=== PATIENT | female | born 1980 | race Caucasian/White ===

== ENCOUNTER 2021-08-05 01:57 | Emergency (ER) | payer MEDICAID ==
[2021-08-05] MEDS ORDERED: Codeine/guaiFENesin 100mg-10 MG/5 ML Soln 118 ML Bottle PO ONE (01:58)
[2021-08-05] MEDS ORDERED: Azithromycin 250 MG Tab PO ONE (01:58)
[2021-08-05] MEDS ORDERED: Albuterol/Ipratropium 3.0-0.5 MG/3 ML Neb Soln NEB ONE (02:42)
--- NOTE | 2021-08-05 03:23 | EDM.PDOC ---
ED HPI GENERAL MEDICAL PROBLEM - General Chief Complaint: Respiratory Problem Stated Complaint: upper resp issues Time Seen by Provider: 08/05/21 03:22 Source of Information: Reports: Patient History Limitations: Reports: No Limitations - History of Present Illness INITIAL COMMENTS - FREE TEXT/NARRATIVE: Coughing up gobs,x 3days. Has had COVID. No fever. Non smoker - Related Data Allergies Allergy/AdvReac Type Severity Reaction Status Date / Time No Known Allergies Allergy Verified 08/05/21 03:08 Home Meds: Home Meds Benzonatate [Tessalon Perles] 100 mg PO TID #15 cap 08/05/21 [Rx] Methylphenidate [Concerta] 18 mg PO DAILY 08/05/21 [History] Methylphenidate [Concerta] 54 mg PO DAILY 08/05/21 [History] Past Medical History Cardiovascular History: Reports: Hypertension Psychiatric History: Reports: Anxiety, Depression Endocrine/Metabolic History: Reports: Diabetes, Type II - Past Surgical History HEENT Surgical History: Reports: Tonsillectomy ED ROS GENERAL - Review of Systems Review Of Systems: Comprehensive ROS is negative, except as noted in HPI. ED EXAM, GENERAL - Physical Exam Exam: See Below Free Text/Narrative:: Actively coughing Exam Limited By: No Limitations General Appearance: Alert, WD/WN Nose: Nasal Drainage Throat/Mouth: Normal Inspection Head: Atraumatic Neck: Normal Inspection Respiratory/Chest: No Respiratory Distress, Rhonchi Cardiovascular: Normal Peripheral Pulses, Regular Rate, Rhythm Course - Vital Signs Last Recorded V/S: Last Vital Signs Temp 99.3 F 08/05/21 03:30 Pulse 104 H 08/05/21 03:30 Resp 18 08/05/21 03:30 BP 147/96 H 08/05/21 03:30 Pulse Ox 96 08/05/21 03:30 - Orders/Labs/Meds Labs: Laboratory Tests 08/05/21 Range/Units 02:20 SARS-CoV-2 RNA (MARQUITA) Negative (NEGATIVE) Meds: Medications Discontinued Medications Generic Name Dose Route Start Last Admin Trade Name Freq PRN Reason Stop Dose Admin Albuterol/Ipratropium 3 ml 08/05/21 02:42 08/05/21 02:47 Albuterol/Ipratropium 3.0-0.5 Mg/3 Ml Neb Soln NEB 08/05/21 02:43 3 ml ONETIME ONE Administration Azithromycin 1,500 mg 08/05/21 01:58 Azithromycin 250 Mg Tab PO 08/05/21 01:59 .STK-MED ONE Guaifenesin/Codeine Phosphate 60 ml 08/05/21 01:58 Codeine/Guaifenesin 100mg-10 Mg/5 Ml Soln 118 Ml Bottle PO 08/05/21 01:59 .STK-MED ONE Departure - Departure Time of Disposition: 14:51 Disposition: Home, Self-Care 01 Clinical Impression: Acute bronchitis - Discharge Information Prescriptions: Benzonatate [Susanasalon Jack] 100 mg PO TID #15 cap Instructions: Azithromycin tablets, Codeine; Guaifenesin oral solution or syrup, Acute Bronchitis, Adult Forms: ED Department Discharge Care Plan Goals: The result of your Covid test today was negative. [employer] prescription for [facility] at [facility] in [place]. Follow up with your primary care physician as needed. - Problem List & Annotations (1) Acute bronchitis SNOMED Code(s): 70920355 Code(s): J20.9 - ACUTE BRONCHITIS, UNSPECIFIED Status: Acute Qualifiers: Bronchitis organism: unspecified organism Qualified Code(s): J20.9 - Acute bronchitis, unspecified - Problem List Review Problem List Initiated/Reviewed/Updated: Yes - Assessment/Plan Plan: COVID -neg. Sent Nelsy AC home with.,Trang Santiago at the pharmacy.
--- NOTE | 2021-08-06 11:43 | CR ---
CHEST TWO VIEWS INDICATION: Productive cough, green sputum. FINDINGS: PA and lateral views of the chest were obtained were obtained 08/05/21 - no comparisons. Evidence of exogenous obesity is noted. The heart did not appear enlarged. Mediastinum is unremarkable. A minimal dextroconvex scoliosis of the thoracic spine is noted. No definite active infiltrate or effusion was identified. However, there is moderate bronchial wall cuffing at the lung bases, which may be on the basis of active peribronchial disease, and should be correlated clinically. MTDD
== END 2021-08-05 03:45 | disposition home or self-care (01) ==
LOC: FB.ED 01:57
DX: J20.9 Acute bronchitis, unspecified (principal); I10 Essential (primary) hypertension; E11.9 Type 2 diabetes mellitus without complications; Z79.899 Other long term (current) drug therapy; Z20.822 Contact with and (suspected) exposure to COVID-19
CPT/HCPCS: 71046; 87635; 94640; 99284; A9270; J7620-GY; U0002